=== PATIENT | male | born 1995 | race Caucasian/White ===

== ENCOUNTER 2017-04-03 18:06 | Emergency (ER) | payer OTHER ==
[2017-04-03 18:27] VITALS: BP 124/85; PULSE 99; TEMP 98.3; BMI 21.3
--- NOTE | 2017-04-03 19:00 | PDOC ---
History of Present Illness - General Chief Complaint: Injury Stated Complaint: TOE INJURY Time Seen by Provider: 04/03/17 18:38 History Source: Patient Exam Limitations: No Limitations - History of Present Illness Initial Comments: 04/03/17 19:11 Patient is a 20-year-old male who denies any significant medical history currently on no medication reports that his left great toe has had an infection for over 3 months. Patient states that he told his mother and father several times but they did not take him to the doctor. Denies any pain to area. No drainage. Past Medical History: Denies. Allergies: No known allergies Medications: None Family History: Non-contributory Social History: Denies smoking, alcohol use, or IVDU Review of Systems GENERAL/CONSTITUTIONAL: No fever or chills. No weakness. No weight change. HEAD, EYES, EARS, NOSE AND THROAT: No change in vision. No ear pain or discharge. No sore throat. CARDIOVASCULAR: No chest pain or shortness of breath. RESPIRATORY: No cough, wheezing, or hemoptysis. GASTROINTESTINAL: No nausea, vomiting, diarrhea or constipation. No rectal bleeding. GENITOURINARY: No dysuria, frequency, or change in urination. MUSCULOSKELETAL: No joint or muscle swelling or pain. No neck or back pain. SKIN : Skin overgrowth to bilateral sides of the nail extending over the top of the nail with dry blood. NEUROLOGIC: No headache, vertigo, loss of consciousness, or loss of sensation. Physical Exam: GENERAL: The patient is awake, alert, and fully oriented, in no acute distress. NECK: Normal range of motion, supple without lymphadenopathy, JVD, or masses. LUNGS: Breath sounds equal, clear to auscultation bilaterally. No wheezes, and no crackles. HEART: Regular rate and rhythm, normal S1 and S2 without murmur, rub or gallop. ABDOMEN: Soft, nontender, normoactive bowel sounds. No guarding, no rebound. No masses. No bruising or abrasions MUSCULOSKELETAL: Normal range of motion, no edema. No clubbing or cyanosis. No cords, erythema, or tenderness. SKIN: Warm, Dry, normal turgor, no rashes or lesions noted. Skin overgrowth to bilateral sides of the nail extending over the top of the nail with dry blood. Patient with significant paronychia, dried with no fluctuance. No surrounding erythema, no streaking, no pain. Past History - Past Medical History Allergies/Adverse Reactions: Allergies Allergy/AdvReac Type Severity Reaction Status Date / Time No Known Allergies Allergy Unverified 04/03/17 18:27 Home Medications: Ambulatory Orders Cephalexin [Keflex] 500 mg PO QID #40 capsule 04/03/17 Asthma: Yes ( A CHILD) - Immunization History Immunization Up to Date: Yes - Suicide/Smoking/Psychosocial Hx Smoking History: Never smoked Hx Alcohol Use: No Drug/Substance Use Hx: No *Physical Exam - Vital Signs Last Vital Signs Temp Pulse Resp BP Pulse Ox 98.3 F 99 H 20 124/85 97 04/03/17 18:24 04/03/17 18:24 04/03/17 18:24 04/03/17 18:24 04/03/17 18:24 Medical Decision Making - Medical Decision Making 04/03/17 19:18 A/P: Patient here for evaluation of paronychia to left great toe, due to the length of time patient has had the paronychia, patient should follow-up with podiatry. Area is dry with keloid tissue. There is no fluctuance, no warmth, no evidence of cellulitis. No evidence of acute infection. Information for podiatry given to patient, he denies any pain to area, will discharge on Keflex with strict follow-up within the next 2 days for evaluation. I discussed the physical exam findings, ancillary test results and final diagnoses with the patient. I answered all of the patient's questions. The patient was satisfied with the care received and felt comfortable with the discharge plan and treatment plan. The patient will call to arrange follow-up and will return to the Emergency Department with any new, persistent or worsening symptoms. *DC/Admit/Observation/Transfer Diagnosis at time of Disposition: Paronychia of great toe of left foot - Discharge Dispostion Disposition: HOME Condition at time of disposition: Good Admit: No - Prescriptions Prescriptions: Cephalexin [Keflex] 500 mg PO QID #40 capsule - Referrals Referrals: Femi Simpson MD [Staff Physician] - Gerald White MD [Staff Physician] - - Patient Instructions Printed Discharge Instructions: DI for Wound Infection Additional Instructions: Please follow-up as soon as possible with podiatry, I have ordered antibiotics please start as soon as possible.
== END 2017-04-03 19:07 | disposition home or self-care (01) ==
LOC: JERFT 18:06
DX: L03.032 Cellulitis of left toe (principal)
CPT/HCPCS: 99281-25